=== PATIENT | female | born 1980 | race Caucasian/White ===

== ENCOUNTER 2016-08-26 12:37 | Emergency (ER) | payer OTHER ==
[2016-08-26] MEDS ORDERED: Ketorolac Tromethamine 60 MG/2 ML VIAL ONE (12:58)
[2016-08-26 13:02] LABS: Bilirubin Negative (Negative); Blood, Urine Large (Negative); Glucose, Urine (Dipstick) Negative (Negative); Ketone, Urine Trace mg/dL (Negative); Nitrite Negative (Negative); Protein, Urine (Dipstick) 30 mg/dL (Neg-Trace); Urobilinogen 0.2 mg/dL (0.2-1.0)
[2016-08-26 13:07] LABS: Bacteria/HPF 1+ HPF (None Seen); Hyaline Casts/LPF NONE SEEN LPF (0-3 Hyaline); Oval Fat Bodies/HPF None Seen HPF (None Seen); RBC/HPF GREATER THAN 50-TNTC HPF (0-3); Renal Epithelial None Seen HPF (0-3); Sperm/HPF None Seen HPF (None Seen); Transitional Epithelial NONE SEEN HPF (0-3); Trichomonas/HPF None Seen HPF (None Seen); WBC/HPF 0-3 HPF (0-3); Yeast-All Forms None Seen HPF (None Seen)
--- NOTE | 2016-08-26 14:15 | CT ---
CT ABDOMEN AND PELVIS WITHOUT CONTRAST: Date: 08/26/16 Multiple axial tomograms obtained through abdomen and pelvis without IV enhancement. HISTORY: Right flank pain. History of urinary stones. Comparison made to CT abdomen and pelvis from 01/16/15. FINDINGS: Lung bases are clear. Liver, spleen, and pancreas are unremarkable. Adrenal glands unremarkable. There is mild right hydronephrosis. There is an obstructing calculus in the proximal right ureter me asuring in 3.0 mm range. There are one or two tiny nonobstructing calculi in the upper collecting structures of the right kid nanda and there are at least two small nonobstructing in the upper collecting structures of the left k idney, each of these measure in the 2.0 mm range. Bowel loops appear unremarkable. Images through the uterus reveal an IUD within the endometrial cavity. Evidence of small left ovaria n cyst measuring in the 2.0 cm range. IMPRESSION: 1. 3.0 mm obstructing calculus proximal right ureter. 2. There are tiny nonobstructing calculi in the upper collecting structures of both kidneys. POS: PETRA
== END 2016-08-26 13:44 | disposition home or self-care (01) ==
LOC: BURERS 12:37
DX: N20.0 Calculus of kidney (principal)
CPT/HCPCS: 74176; 81003; 81015; 81025; 96372; J1885

== ENCOUNTER 2016-10-03 20:21 | Emergency (ER) | payer OTHER ==
[2016-10-03] MEDS ORDERED: Ondansetron ODT 4 MG TAB ONE (20:39)
[2016-10-03] MEDS ORDERED: Ketorolac Tromethamine 60 MG/2 ML VIAL ONE (20:39)
[2016-10-03 20:55] LABS: Blood, Urine Moderate (Negative); Clarity Slightly Cloudy (Clear); Glucose, Urine (Dipstick) Negative (Negative); Leukocyte Negative (Negative); Nitrite Negative (Negative); Protein, Urine (Dipstick) Negative (Neg-Trace); Urobilinogen 0.2 mg/dL (0.2-1.0)
[2016-10-03 20:58] LABS: Bilirubin Negative (Negative); Specific Gravity, Urine 1.028 (1.002-1.036)
[2016-10-03 21:00] LABS: RBC/HPF 0-3 HPF (0-3); Squamous Epithelial 0-3 HPF (0-3); WBC/HPF 0-3 HPF (0-3)
[2016-10-03 21:01] LABS: Bacteria/HPF 1+ HPF (None Seen); Crystals/HPF None Seen HPF (Negative); Hyaline Casts/LPF NONE SEEN LPF (0-3 Hyaline); Other Casts/LPF None Seen LPF (0-3 Hyaline); Oval Fat Bodies/HPF None Seen HPF (None Seen); Renal Epithelial None Seen HPF (0-3); Sperm/HPF None Seen HPF (None Seen); Transitional Epithelial NONE SEEN HPF (0-3); Trichomonas/HPF None Seen HPF (None Seen); Yeast-All Forms None Seen HPF (None Seen)
[2016-10-03 21:08] LABS: Pregnancy Test - Urine (BHCG) NEGATIVE (NEGATIVE); Pregu Control Bar Appear? YES (CONTROL BAR); Specific Gravity 1.028 (1.002-1.036)
[2016-10-03] MEDS ORDERED: Nitrofurantoin Monohyd/M-Cryst 100 MG CAP ONE (21:11)
== END 2016-10-03 21:15 | disposition home or self-care (01) ==
LOC: BURERS 20:21
DX: N39.0 Urinary tract infection, site not specified (principal); Z87.442 Personal history of urinary calculi
CPT/HCPCS: 81003; 81015; 81025; 96372; J1885; Q0162

== ENCOUNTER 2016-10-04 11:47 | Emergency (ER) | payer OTHER ==
[2016-10-04] MEDS ORDERED: Ondansetron HCl/PF 4 MG/2 ML Vial ONE (12:03)
[2016-10-04 12:23] LABS: Blood, Urine Moderate (Negative); Clarity Cloudy (Clear); Glucose, Urine (Dipstick) Negative (Negative); Leukocyte Negative (Negative); Nitrite Negative (Negative); Protein, Urine (Dipstick) 30 mg/dL (Neg-Trace); Urobilinogen 0.2 mg/dL (0.2-1.0)
[2016-10-04 12:46] LABS: Bilirubin Negative (Negative)
[2016-10-04 12:59] LABS: #Basophils 0.1 thou/uL (0.0-0.2); #Lymphocytes 1.1 thou/uL (1.20-3.40); #Monocytes 0.7 thou/uL (0.11-0.59); #Neutrophils 15.5 thou/uL (1.40-6.50); %Basophils 0.3 % (0.0-1.0); %Eosinophils 0.1 % (0.0-10.0); %Lymphocytes 6.2 % (21.0-51.0); %Monocytes 4.1 % (0.0-10.0); %Neutrophils 89.3 % (42.0-75.0); Hemoglobin 15.3 g/dL (12.0-16.0); Mean Corpuscular HGB CONC 31.9 g/dL (32.0-36.0); Mean Corpuscular Hemoglobin 30.1 pg (27.0-31.0); Mean Corpuscular Volume 94.4 fl (81.0-99.0); Mean Platelet Volume 9.3 fL (7.4-10.4); Platelet Count 227 thou/uL (130-400); RBC Distribution Width 12.2 % (11.5-14.5); Red Blood Cell (RBC) Count 5.08 mill/uL (4.20-5.40); White Blood Cell (WBC) Count 17.4 thou/uL (4.8-10.8)
[2016-10-04 13:07] LABS: ALT (SGPT) 25 U/L (0-55); AST (SGOT) 30 U/L (5-34); Albumin 4.3 g/dL (3.5-5.0); Alkaline Phosphatase 53 U/L (40-150); Anion Gap 10 mmol/L (10-20); BUN (Urea Nitrogen) 16 mg/dL (7.0-18.7); Bilirubin, Total 1.2 mg/dL (0.2-1.2); Calc. Creatinine Clearance 0 mL/min (70-130); Carbon Dioxide 27 mmol/L (22-29); Chloride 106 mmol/L (98-107); Estimated GFR-MDRD Greater than 90; Globulin 3.3 g/dL (2.4-3.5); Glucose 85 mg/dL (70-105); Lipase 19 U/L (8-78); Potassium 3.4 mmol/L (3.5-5.1); Protein, Total 7.6 g/dL (6.0-8.3); Sodium 140 mmol/L (136-145)
== END 2016-10-04 14:38 | disposition home or self-care (01) ==
LOC: BURERS 11:47
DX: E86.0 Dehydration (principal); R19.7 Diarrhea, unspecified; R11.2 Nausea with vomiting, unspecified
CPT/HCPCS: 80053; 81003; 83690; 85025; 87086; 96361; 96374; 96375; J2405

== ENCOUNTER 2016-10-26 19:46 | Emergency (ER) | payer OTHER ==
[2016-10-26] MEDS ORDERED: Ketorolac Tromethamine 60 MG/2 ML VIAL ONE (20:02)
[2016-10-26] MEDS ORDERED: HYDROcodone/Acetaminophen 10/325 mg Tablet ONE (20:02)
[2016-10-26] MEDS ORDERED: Dicyclomine HCl 20 mg/2 ml Ampule ONE (20:05)
[2016-10-26 20:08] LABS: Bilirubin Negative (Negative); Blood, Urine Large (Negative); Clarity Hazy (Clear); Glucose, Urine (Dipstick) Negative (Negative); Leukocyte Negative (Negative); Nitrite Negative (Negative); Protein, Urine (Dipstick) Trace mg/dL (Neg-Trace); Specific Gravity, Urine 1.025 (1.005-1.030); Urobilinogen 0.2 mg/dL (0.2-1.0); pH, Urine 5.5 (5.0-9.0)
[2016-10-26 20:15] LABS: Bacteria/HPF 2+ HPF (None Seen); RBC/HPF GREATER THAN 50-TNTC HPF (0-3)
[2016-10-26] MEDS ORDERED: Ondansetron ODT 4 MG TAB ONE (20:29)
[2016-10-26] MEDS ORDERED: Sulfameth/Trimethoprim DS 800-160mg TAB ONE (20:29)
== END 2016-10-26 21:10 | disposition home or self-care (01) ==
LOC: BURERS 19:46
DX: N20.0 Calculus of kidney (principal); Z87.442 Personal history of urinary calculi
CPT/HCPCS: 81003; 81015; 87086; 96372; J1885; Q0162

== ENCOUNTER 2019-02-24 18:36 | Emergency (ER) | payer OTHER ==
[2019-02-24 18:55] LABS: Bilirubin Small (Negative); Blood, Urine Moderate (Negative); Clarity Cloudy (Clear); Glucose, Urine (Dipstick) Negative (Negative); Leukocyte Trace (Negative); Nitrite Negative (Negative); Protein, Urine (Dipstick) 30 mg/dL (Neg-Trace); Urobilinogen 0.2 mg/dL (Less than 2)
[2019-02-24 19:00] LABS: Bacteria/HPF 2+ HPF (None Seen); Broad Cast None Seen LPF (None Seen); Calcium Oxalate Crystals None Seen HPF (None Seen); Cellular Cast None Seen LPF (None Seen); Epithelial Cast None Seen LPF (None Seen); Fatty Cast None Seen LPF (None Seen); Mucous/LPF 1+ LPF (<2+); Other Casts None Seen LPF (None Seen); Oval Fat Bodies/HPF None Seen HPF (None Seen); Red Blood Cell Cast None Seen LPF (None Seen); Renal Epithelial None Seen HPF (None Seen); Sperm/HPF None Seen HPF (None Seen); Squamous Epithelial 0-3 HPF (0-3); Transitional Epithelial None Seen HPF (None Seen); Trichomonas/HPF None Seen HPF (None Seen); Triple Phosphate Crystal None Seen HPF (None Seen); Unclassified Crystals None Seen HPF (None Seen); Waxy Cast None Seen LPF (None Seen); White Blood Cell Cast None Seen LPF (None Seen); Yeast-Budding None Seen HPF (None Seen); Yeast-Hyphae None Seen HPF (None Seen)
== END 2019-02-24 19:17 | disposition home or self-care (01) ==
LOC: BURERS 18:36
DX: N39.0 Urinary tract infection, site not specified (principal)
CPT/HCPCS: 81003; 81015; 99283

== ENCOUNTER 2020-05-14 16:57 | Emergency (ER) | payer BC, OTHER ==
[2020-05-14 17:22] LABS: #Basophils 0.1 thou/uL (0.0-0.2); #Eosinphils 0.1 thou/uL (0.0-0.7); #Lymphocytes 3.2 thou/uL (1.20-3.40); #Monocytes 0.6 thou/uL (0.11-0.59); #Neutrophils 7.4 thou/uL (1.40-6.50); %Basophils 0.6 % (0.0-1.0); %Eosinophils 0.8 % (0.0-10.0); %Lymphocytes 28.5 % (21.0-51.0); %Monocytes 5.3 % (0.0-10.0); %Neutrophils 64.8 % (42.0-75.0); Hemoglobin 15.5 g/dL (12.0-16.0); Mean Corpuscular HGB CONC 32.4 g/dL (32.0-36.0); Mean Corpuscular Hemoglobin 29.6 pg (27.0-31.0); Mean Corpuscular Volume 91.4 fL (78.0-98.0); Mean Platelet Volume 8.8 fL (7.4-10.4); Platelet Count 219 thou/uL (130-400); RBC Distribution Width 11.5 % (11.5-14.5); Red Blood Cell (RBC) Count 5.24 mill/uL (4.20-5.40); White Blood Cell (WBC) Count 11.4 thou/uL (4.8-10.8)
[2020-05-14 17:27] LABS: Bilirubin Negative (Negative); Blood, Urine Small (Negative); Clarity Clear (Clear); Glucose, Urine (Dipstick) Negative (Negative); Ketone, Urine Negative (Negative); Leukocyte Negative (Negative); Nitrite Negative (Negative); Protein, Urine (Dipstick) Negative (Neg-Trace); Specific Gravity, Urine 1.025 (1.005-1.030); Urobilinogen 0.2 mg/dL (Less than 2)
[2020-05-14] MEDS ORDERED: Ondansetron PF 4 MG/2 ML Vial ONE (17:27)
[2020-05-14] MEDS ORDERED: Dicyclomine 20 MG TAB ONE (17:27)
[2020-05-14] MEDS ORDERED: Ketorolac Tromethamine 30 MG/ML VIAL ONE (17:27)
[2020-05-14] MEDS ORDERED: Famotidine In NaCl 20 mg/50 ml Premix Bag ONE (17:27)
[2020-05-14 17:29] LABS: Bacteria/HPF None Seen HPF (None Seen); RBC/HPF 0-3 HPF (0-3); Squamous Epithelial 0-3 HPF (0-3); WBC/HPF None Seen HPF (0-3)
--- NOTE | 2020-05-14 17:32 | RAD ---
PORTABLE CHEST: 05/14/20 PROVIDED CLINICAL HISTORY: Chest pain. FINDINGS: Comparison 12/29/13. Cardiac and mediastinal silhouette is within normal limits. No focal consolidation, pleural fluid, or pneumothorax apparent. IMPRESSION: No evidence for an acute cardiopulmonary process. POS: LESLIE
[2020-05-14 17:37] LABS: ALT (SGPT) 32 U/L (8-55); AST (SGOT) 23 U/L (5-34); Albumin 4.3 g/dL (3.5-5.0); Alkaline Phosphatase 47 U/L (40-110); Anion Gap 14 mmol/L (10-20); BUN (Urea Nitrogen) 15 mg/dL (7.0-18.7); Bilirubin, Total 0.2 mg/dL (0.2-1.2); Calc. Creatinine Clearance 0 mL/min (70-130); Calcium 9.7 mg/dL (7.8-10.44); Carbon Dioxide 27 mmol/L (22-29); Chloride 101 mmol/L (98-107); Globulin 3.4 g/dL (2.4-3.5); Glucose 96 mg/dL (70-105); Lipase 39 U/L (8-78); Potassium 3.6 mmol/L (3.5-5.1); Protein, Total 7.7 g/dL (6.0-8.3); Sodium 138 mmol/L (136-145)
[2020-05-14] MEDS ORDERED: Morphine 2 MG/ML SYRINGE ONE (18:05)
[2020-05-14] MEDS ORDERED: Hyoscyamine Sulfate SL 0.125 mg Tablet ONE (18:39)
[2020-05-14] MEDS ORDERED: HYDROcodone/Acetaminophen 10/325 mg Tablet ONE (18:39)
--- NOTE | 2020-05-14 19:14 | CT ---
CT ABDOMEN AND PELVIS WITHOUT CONTRAST: 05/14/20 PROVIDED CLINICAL HISTORY: Right upper quadrant pain. FINDINGS: Comparison 08/26/16. The visualized lung bases are free of significant opacity. There is a gallstone in the region of the gallbladder neck with moderate gallbladder distention. The solid abdominal organs are suboptimally evaluated in the absence of IV contrast material but demo nstrates an unremarkable unenhanced CT appearance other than tiny nonobstructing renal calculi and me dullary nephrocalcinosis. There is no bowel dilatation, inflammatory fat stranding, free fluid, or free air apparent. There is no evidence for appendicitis. The osseous structures demonstrate no concerning lytic or blastic lesions. Intrauterine device is not ed centrally within the uterus. IMPRESSION: Gallbladder distention with stones seen in the region of the gallbladder neck. Correlate for acute ch olecystitis. POS: LESLIE
== END 2020-05-14 19:27 | disposition home or self-care (01) ==
LOC: BURERS 16:57
DX: K80.20 Calculus of gallbladder without cholecystitis without obstruction (principal)
CPT/HCPCS: 36415; 71045; 74176; 80053; 81003; 81015; 83690; 84484; 85025; 93005; 94760; 96365; 96366; 96375; J1885; J2270; J2405

== ENCOUNTER 2021-09-10 19:19 | Emergency (ER) | payer OTHER ==
[2021-09-10] MEDS ORDERED: Iopamidol 370 76% 100 ML VIAL FS ONE (19:20)
[2021-09-10] MEDS ORDERED: Ketorolac Tromethamine 30 MG/ML VIAL ONE (19:52)
[2021-09-10] MEDS ORDERED: Metoclopramide HCl 10 MG/2 ML VIAL ONE (19:52)
== END 2021-09-10 21:01 | disposition home or self-care (01) ==
LOC: BURERS 19:19
DX: R51.9 Headache, unspecified (principal); T50.5X5A Adverse effect of appetite depressants, initial encounter; Z87.442 Personal history of urinary calculi
CPT/HCPCS: 70450; 70496; 96374; 96375; J1885; J2765; Q9967